=== PATIENT | female | born 1975 | race Caucasian/White ===

== ENCOUNTER 2017-02-02 17:39 | Emergency (ER) | payer MEDICAID ==
[~2017-02-02] VITALS: Ht 165.1 cm; Wt 117.9 kg
[2017-02-02 17:58] VITALS: BP 140/69
== END 2017-02-02 20:59 | disposition home or self-care (01) ==
LOC: ER 17:39
DX: S61.211A Laceration without foreign body of left index finger without damage to nail, initial encounter (principal); E07.9 Disorder of thyroid, unspecified; M79.7 Fibromyalgia; Z85.3 Personal history of malignant neoplasm of breast; W25.XXXA Contact with sharp glass, initial encounter; Y93.H2 Activity, gardening and landscaping; Y99.8 Other external cause status; Y92.89 Other specified places as the place of occurrence of the external cause

== ENCOUNTER 2017-12-13 18:23 | Emergency (ER) | payer MEDICAID ==
[~2017-12-13] VITALS: Ht 165.1 cm; Wt 119.7 kg
[2017-12-13 19:16] LABS: Basophils # (auto) 0 uL; Basophils % (auto) 0.5 % (0.0-2.0); Eosinophils # (auto) 0.2 uL; Eosinophils % (auto) 1.9 % (0.0-7.0); Hematocrit 40.2 % (36.0-46.0); Hemoglobin 13.2 g/dL (12.2-16.2); Lymphocytes # (auto) 1.7 uL; Lymphocytes % (auto) 17.5 % (10.0-50.0); Mean Corpuscular Hemoglobin 29.4 pg (28.0-32.0); Mean Corpuscular Hgb Conc. 32.8 g/dL (32.0-36.0); Mean Corpuscular Volume 89.7 fL (80.0-100.0); Monocytes # (auto) 0.6 uL; Monocytes % (auto) 5.9 % (0.0-12.0); Neutrophils # (auto) 7.1 uL; Neutrophils % (auto) 74.2 % (37.0-80.0); Nucleated Red Blood Cells % 0.1 %; Platelet Count (auto) 307 10^3/uL (140-450); Red Blood Cells 4.48 10^6/uL (4.0-5.20); Red Cell Distribution Width 14.8 % (11.8-14.3); White Blood Cell 9.5 10^3/uL (4.4-10.8)
[2017-12-13 19:30] LABS: Albumin 3.5 g/dL (3.4-5.0); BUN/Creatinine Ratio 13.4
[2017-12-13 19:33] LABS: Bilirubin, Total 0.3 mg/dL (0.2-1.0)
[2017-12-13 19:50] LABS: Urine Bacteria FEW /hpf (None Seen); Urine Blood TRACE /uL (Negative); Urine Specific Gravity 1.017 (1.001-1.035); Urine WBC 3 /hpf (0 - 5)
[2017-12-13 23:52] VITALS: BP 105/58
[2017-12-14] MEDS ORDERED: ONDANSETRON HCL 4 MG/2 ML VIAL IV ONE (00:15)
[2017-12-14] MEDS ORDERED: MORPHINE SULFATE 4 MG/ML SYR/VIAL IV ONE (00:15)
[2017-12-14] MEDS ORDERED: MORPHINE SULFATE 4 MG/ML SYR/VIAL ONE (00:17)
[2017-12-14] MEDS ORDERED: ONDANSETRON HCL 4 MG/2 ML VIAL ONE (00:18)
== END 2017-12-14 01:54 | disposition home or self-care (01) ==
LOC: ER 18:23
DX: K80.20 Calculus of gallbladder without cholecystitis without obstruction (principal); M19.90 Unspecified osteoarthritis, unspecified site; E07.9 Disorder of thyroid, unspecified; Z98.51 Tubal ligation status
CPT/HCPCS: 36415; 74176; 80053; 81001; 81025; 82150; 83690; 84702; 85025; 96374; 96375; 99285; J2270; J2405

== ENCOUNTER 2019-12-22 19:42 | Emergency (ER) | payer MEDICAID ==
[~2019-12-22] VITALS: Ht 165.1 cm; Wt 117.9 kg
[2019-12-22 22:33] VITALS: BP 138/63
[2019-12-22] MEDS ORDERED: HYDROcodone-ACET 10/325MG TAB PO ONE (23:00)
== END 2019-12-23 00:20 | disposition home or self-care (01) ==
LOC: ER 19:42
DX: M25.562 Pain in left knee (principal); Z98.51 Tubal ligation status
CPT/HCPCS: 73562; 93971

== ENCOUNTER 2022-07-21 08:54 | Emergency (ER) | payer MEDICAID ==
[~2022-07-21] VITALS: Ht 165.1 cm; Wt 118.0 kg
[2022-07-21 09:28] LABS: Urine WBC None Seen /hpf (0 - 5)
[2022-07-21 09:47] LABS: Urine Bacteria NONE SEEN /hpf (None Seen); Urine Blood TRACE /uL (Negative)
[2022-07-21 09:59] LABS: Alcohol, Urine < 3.0 mg/dL (0-10); Amphetamine Screen, Urine NEGATIVE (NEGATIVE); Barbiturate Scree,Urine NEGATIVE (NEGATIVE); Benzodiazephine Screen, Urine NEGATIVE (NEGATIVE); Cannabinoid Screen, Urine NEGATIVE (NEGATIVE); Cocaine Screen, Urine NEGATIVE (NEGATIVE); Opiate Scree,Urine NEGATIVE (NEGATIVE); Phencyclidine Screen, Urine NEGATIVE (NEGATIVE)
[2022-07-21 10:18] LABS: Basophils # (auto) 0 10 ^3/uL (0-0.2); Basophils % (auto) 0.6 % (0.0-2.0); Eosinophils # (auto) 0.1 10 ^3/uL (0-0.8); Eosinophils % (auto) 0.9 % (0.0-7.0); Hematocrit 42.2 % (36.0-46.0); Hemoglobin 13.9 g/dL (12.2-16.2); Lymphocytes # (auto) 0.9 10 ^3/uL (0.4-5.4); Lymphocytes % (auto) 11.6 % (10.0-50.0); Mean Corpuscular Hemoglobin 29.7 pg (28.0-32.0); Mean Corpuscular Volume 90.1 fL (80.0-100.0); Monocytes # (auto) 0.4 10 ^3/uL (0-1.3); Monocytes % (auto) 5.7 % (0.0-12.0); Neutrophils % (auto) 81.2 % (37.0-80.0); Red Blood Cells 4.68 10^6/uL (4.0-5.20); Red Cell Distribution Width 13.8 % (11.8-14.3); White Blood Cell 7.4 10^3/uL (4.4-10.8)
[2022-07-21 10:37] LABS: Albumin 3.8 g/dL (3.4-5.0); Calcium 9.1 mg/dL (8.5-10.1); Potassium 4.8 mmol/L (3.5-5.1)
[2022-07-21 10:43] LABS: BUN/Creatinine Ratio 15.6; Bilirubin, Total 0.6 mg/dL (0.2-1.0); Total Protein 7.7 g/dL (6.4-8.2)
[2022-07-21] MEDS ORDERED: ONDA-144 PO (13:01)
[2022-07-21 13:35] VITALS: BP 151/81
== END 2022-07-21 13:37 | disposition home or self-care (01) ==
LOC: ER 08:54
DX: N83.201 Unspecified ovarian cyst, right side (principal); E03.9 Hypothyroidism, unspecified; Z90.49 Acquired absence of other specified parts of digestive tract
CPT/HCPCS: 36415; 74176; 80053; 80307; 81001; 82150; 83690; 85025

== ENCOUNTER 2022-11-13 18:48 | Emergency (ER) | payer MEDICAID, OTHER ==
[~2022-11-13] VITALS: Ht 165.1 cm; Wt 120.5 kg
[~2022-11-13 18:48] MED LIST: ONDA-144 PO
[2022-11-13] MEDS ORDERED: ACETAMINOPHEN 325 MG TAB PO ONE (21:00)
[2022-11-13 21:40] VITALS: BP 127/79
== END 2022-11-13 21:47 | disposition home or self-care (01) ==
LOC: ER 18:48
DX: S00.90XA Unspecified superficial injury of unspecified part of head, initial encounter (principal); Z98.890 Other specified postprocedural states; V89.2XXA Person injured in unspecified motor-vehicle accident, traffic, initial encounter; Y93.89 Activity, other specified; Y92.89 Other specified places as the place of occurrence of the external cause; Y99.8 Other external cause status
CPT/HCPCS: 70450

== ENCOUNTER → 2023-03-14 | Day surgery (SDC) | payer MEDICAID ==
[2023-03-12 10:56] LABS: Basophils # (auto) 0 10 ^3/uL (0-0.2); Basophils % (auto) 0.7 % (0.0-2.0); Eosinophils # (auto) 0.1 10 ^3/uL (0-0.8); Eosinophils % (auto) 1.3 % (0.0-7.0); Hematocrit 41.4 % (36.0-46.0); Hemoglobin 13.7 g/dL (12.2-16.2); Lymphocytes # (auto) 1.3 10 ^3/uL (0.4-5.4); Lymphocytes % (auto) 20.8 % (10.0-50.0); Mean Corpuscular Hemoglobin 29.7 pg (28.0-32.0); Mean Corpuscular Hgb Conc. 33.1 g/dL (32.0-36.0); Mean Corpuscular Volume 89.8 fL (80.0-100.0); Monocytes # (auto) 0.5 10 ^3/uL (0-1.3); Monocytes % (auto) 8.7 % (0.0-12.0); Neutrophils # (auto) 4.2 10 ^3/uL (1.6-8.6); Neutrophils % (auto) 68.5 % (37.0-80.0); Nucleated Red Blood Cells % 0.2 %; Red Blood Cells 4.62 10^6/uL (4.0-5.20); White Blood Cell 6.1 10^3/uL (4.4-10.8)
[2023-03-12 11:23] LABS: INR 0.94 (0.9-1.15); Partial Thromboplastin Time 29.5 sec (24.6-33.4)
[2023-03-12 11:28] LABS: Albumin 3.9 g/dL (3.4-5.0); Calcium 9.1 mg/dL (8.5-10.1)
[2023-03-12 11:31] LABS: BUN/Creatinine Ratio 12.2 (10.0-20.0); Bilirubin, Total 0.4 mg/dL (0.2-1.0); Total Protein 7.8 g/dL (6.4-8.2)
[~2023-03-14] MED LIST changes: +FLUMAZENIL 0.1 MG/ML INJ 10ML MDV IV ONE; +LIDOCAINE VISCOUS 2% 15ML UD ONE; +NALOXONE HCL 0.4 MG/ML VIAL ONE; -ONDA-144 PO; +SODIUM CHLORIDE LOCK 10 ML ONE
[2023-03-14] MEDS: MIDAZOLAM HCL 5 MG/ML-1ML VIAL ONE ×3 (13:55→14:03)
[2023-03-14] MEDS: fentaNYL CITRATE 100 MCG/2 ML VL ONE ×3 (13:57→14:03)
[2023-03-14] MEDS: diphenhdrAMINE HCL 50 MG/1 ML VL ONE ×2 (13:58→14:00)
[2023-03-14 14:41] VITALS: BP 141/63
== END | disposition home or self-care (01) ==
LOC: GI 12:21
PROVIDERS: ATTEND Internal Medicine Gastroenterology
DX: K21.9 Gastro-esophageal reflux disease without esophagitis (principal); K29.90 Gastroduodenitis, unspecified, without bleeding; K44.9 Diaphragmatic hernia without obstruction or gangrene; E03.9 Hypothyroidism, unspecified; Z85.3 Personal history of malignant neoplasm of breast; Z98.890 Other specified postprocedural states
CPT/HCPCS: 36415; 43239; 80053; 84702; 85025; 85610; 85730; 88305; 88342; J1200; J2250; J3010; J7030; 99152

== ENCOUNTER 2024-03-26 11:03 | Emergency (ER) | payer MEDICAID ==
[~2024-03-26] VITALS: Ht 165.1 cm; Wt 105.6 kg
[2024-03-26 12:09] VITALS: BP 129/74; PULSE 79; RESP 20; TEMP 98; O2SAT 100
[2024-03-26] MEDS: KETOROLAC TROMETH 60MG/2ML VIAL IM ONE (12:25)
[2024-03-26] MEDS ORDERED: TRAM-626 PO (12:28)
== END 2024-03-26 12:38 | disposition home or self-care (01) ==
LOC: ER 11:03
DX: M23.8X1 Other internal derangements of right knee (principal); E66.01 Morbid (severe) obesity due to excess calories; Z68.38 Body mass index [BMI] 38.0-38.9, adult; Z85.9 Personal history of malignant neoplasm, unspecified; Z79.899 Other long term (current) drug therapy
CPT/HCPCS: 73562; 96372; 99283; J1885

== ENCOUNTER 2024-11-15 14:57 | Inpatient (IN) | payer MEDICAID ==
[~2024-11-15] VITALS: Ht 167.6 cm; Wt 120.5 kg
[~2024-11-15 14:57] MED LIST changes: -FLUMAZENIL 0.1 MG/ML INJ 10ML MDV IV ONE; -LIDOCAINE VISCOUS 2% 15ML UD ONE; -NALOXONE HCL 0.4 MG/ML VIAL ONE; -SODIUM CHLORIDE LOCK 10 ML ONE; +TRAM-626 PO
[2024-11-15 15:57] LABS: Anion Gap 6 (5-15); Carbon Dioxide 27 mmol/L (20-31); Potassium 4.3 mmol/L (3.5-5.1); Sodium 140 mmol/L (136-145)
[2024-11-15 15:58] LABS: Calcium 10.1 mg/dL (8.7-10.4)
[2024-11-15 16:03] LABS: BUN/Creatinine Ratio 14.3 (10.0-20.0); Blood Urea Nitrogen 11 mg/dL (9-23); Glucose 77 mg/dL (74-106); Lipase 46 U/L (12-53)
[2024-11-15 16:04] LABS: Basophils # (auto) 0 10 ^3/uL (0-0.2); Basophils % (auto) 0.6 % (0.0-2.0); Eosinophils # (auto) 0.1 10 ^3/uL (0-0.8); Hematocrit 40.8 % (36.0-46.0); Hemoglobin 13.7 g/dL (12.2-16.2); Lymphocytes # (auto) 1.1 10 ^3/uL (0.4-5.4); Lymphocytes % (auto) 22.8 % (10.0-50.0); Mean Corpuscular Hemoglobin 30.7 pg (28.0-32.0); Mean Corpuscular Hgb Conc. 33.7 g/dL (32.0-36.0); Mean Corpuscular Volume 91.2 fL (80.0-100.0); Monocytes # (auto) 0.5 10 ^3/uL (0-1.3); Monocytes % (auto) 11.4 % (0.0-12.0); Neutrophils % (auto) 63.2 % (37.0-80.0); Nucleated Red Blood Cells % 0.1 %; Platelet Count (auto) 169 10^3/uL (140-450); Red Blood Cells 4.47 10^6/uL (4.0-5.20); White Blood Cell 4.8 10^3/uL (4.4-10.8)
[2024-11-15 16:23] LABS: Urine Bacteria FEW /hpf (None Seen); Urine Blood TRACE /uL (Negative); Urine Clarity Clear (Clear); Urine Color Light-Yellow (Yellow); Urine Protein, UAD Negative (Negative); Urine Squamous Epithelial Cell FEW /hpf (<5); Urine Urobilinogen Normal (Negative); Urine WBC <1 /hpf (0 - 5); Urine pH 6.5 (5.0-9.0)
[2024-11-15 16:27] LABS: Chloride 107 mmol/L (98-107)
[2024-11-15] MEDS: PANTOPRAZOLE 40 MG/10 ML VIAL INJ IV ONE (17:00)
[2024-11-15] MEDS: MORPHINE SULFATE 4 MG/ML SYR/VIAL IV ONE (17:00)
[2024-11-15] MEDS: ONDANSETRON HCL 4 MG/2 ML VIAL IV ONE ×2 (17:00→23:15)
--- NOTE | 2024-11-15 17:46 | ED.PDOC ---
GI ASSESSMENT HPI Comments 49Y F with PMHx breast CA s/p lumpectomy, autoimmune disease, and thyroid disease presents to ED for chief complaint right sided abd pain x3 days with n/v/d. Pt also states she is experiencing a metallic taste in her mouth. Pt describes abd pain as pressure and burning. The abd pain worsens with eating food. Current pain level 8/10. Chief Complaint: Abdominal Pain Time Seen by MD: 17:35 Primary Care Provider: DR HOLLEY Reviewed Notes: Nurses Notes, Medications, Allergies Allergies: Coded Allergies: NO KNOWN ALLERGIES (Unverified , 02/02/17) Home Meds Active Scripts Tramadol HCl (Tramadol HCl) 50 Mg Tab, 50 MG PO TID, #20 TAB Prov:NANI SALAS 03/26/24 Information Source: Patient Mode of Arrival: Ambulatory Timing: Days Duration: Intermittent Quality: Burning, Other (pressure) Vomitus: Watery Stool: Watery Severity: Mild Recent: None Recent Hx of: None Pain Location: RUQ, RLQ Modifying Factors: Nothing Associated sign and symptoms: Nausea, Vomiting, Diarrhea, Abdominal Pain Past Medical History PAST MEDICAL HISTORY: Cancer, Thyroid Surgical History: BTL, Cholecystectomy Surgical History (Other): lt breast lumpectomy SOCIAL MEDIA MARKETER History: No Pertinent SOCIAL MEDIA MARKETER History Family History Family History: Reviewed,noncontributory to illness Social History Smoker: Non-Smoker Alcohol: Denies ETOH Use Drugs: Denies Drug Use Lives In: Home Constitutional: denies: chills, diaphoresis, fatigue, fever, malaise, sweats, weakness, others EENTM: denies: blurred vision, double vision, ear bleeding, ear discharge, ear drainage, ear pain, ear ringing, eye pain, eye redness, hearing loss, mouth pain, mouth swelling, nasal discharge, nose bleeding, nose congestion, nose pain, photophobia, tearing, throat pain, throat swelling, voice changes, others Respiratory: denies: cough, hemoptysis, orthopnea, SOB at rest, shortness of breath, SOB with excertion, stridor, wheezing, others Cardiovascular: denies: chest pain, dizzy spells, diaphoresis, Dyspnea on exertion, edema, irregular heart beat, left arm pain, lightheadedness, palpitati ons, PND, syncope, others Gastrointestinal: reports: abdominal pain, diarrhea, nausea, vomiting; denies: abdomen distended, blood streaked bowels, constipated, dysphagia, difficulty swallowing, hematemesis, melena, poor appetite, poor fluid intake, rectal bleeding, rectal pain, others Genitourinary: denies: abnormal vagina bleeding, burning, dyspareunia, dysuria, flank pain, frequency, hematuria, incontinence, pain, , vagina discharge, urgency, others Neurological: denies: dizziness, fainting, headache, left sided numbness, left sided weakness, numbness, paresthesia, pre-existing deficit, right sided nu mbness, right sided weakness, seizure, speech problems, tingling, tremors, weakness, others Musculoskeletal: reports: joint pain; denies: back pain, gout, joint swelling, muscle pain, muscle stiffness, neck pain, others Integumetry: denies: bruises, change in color, change in hair/nails, dryness, laceration, lesions, lumps, rash, wounds, others Allergic/Immunocompromised: denies: Difficulty Healing, Frequent Infections, H charlie, Itching, others Hematologic/Lymphatic: denies: anemia, blood clots, easy bleeding, easy bruising, swollen glands, others Endocrine: denies: excessive hunger, excessive sweating, excessive thirst, excessive urination, flushing, intolerance to cold, intolerance to heat, unexplained weight gain, unexplained weight loss, others Psychiatric: denies: anxiety, bipolar disorder, depression, hopeless, panic disorder, schizophrenia, sleepless, suicidal, others All Other Systems: Reviewed and Negative Physical Exam General Appearance: Mild Distress, Normal, Obese HEENT: Other (Unremarkable) Neck: Full Range of Motion, Normal Inspection Respiratory: Lungs Clear, No Accessory Muscle Use, No Respiratory Distress, Normal Breath Sounds Cardiovascular: No Edema, No JVD, Regular Rate/Rhythm Breast Exam: Deferred Gastrointestinal: Soft, Tenderness (Epigastric, Right mid abdominal and right lower quadrant tenderness to palpation. Nontender to percussion. No rebound or guarding.) Genitalia: Deferred Pelvic: Deferred Rectal: Deferred Extremities: Normal inspection, Normal range of motion, Non-tender, No pedal edema Musculoskeletal : Apperance: Normal Neurologic: Alert (Oriented x4), Normal Affect, Normal Mood, Other (Ambulatory without difficulty. No gross focal deficit.) Cerebellar Function: NOT DONE Reflexes: NOT DONE Skin: Dry, Normal Color, Warm Lymphatic: NOT DONE Was a procedure done? Was a procedure done?: No GI differential Dx Differential Diagnosis: Appendicitis, Diverticular disease, Esophagitis, Gastritis/PUD, Gastroenteritis, Inflammatory BD, Ischemic Bowel, UTI, Dehydration, Diabetes/ DKA, Electrolyte Imbalance, Food Poisoning, , Bacterial, Parasitic, Viral, Hypovolemia, Renal Failure, Stress Ulcer, Kidney Stone X-Ray, Labs, Meds, VS Vital Signs Date Time Temp Pulse Resp B/P (MAP) Pulse Ox O2 Delivery O2 Flow Rate FiO2 11/15/24 18:55 88 16 163/101 (121) 98 11/15/24 17:00 88 16 163/101 11/15/24 16:11 78 18 141/81 (101) 100 11/15/24 15:20 97.6 78 18 114/66 (82) 100 Lab Test 11/15/24 15:37 11/15/24 15:16 Range/Units White Blood Count 4.8 4.4-10.8 10^3/uL Red Blood Count 4.47 4.0-5.20 10^6/uL Hemoglobin 13.7 12.2-16.2 g/dL Hematocrit 40.8 36.0-46.0 % Mean Corpuscular Volume 91.2 80.0-100.0 fL Mean Corpuscular Hemoglobin 30.7 28.0-32.0 pg Mean Corpuscular Hemoglobin Concent 33.7 32.0-36.0 g/dL Red Cell Distribution Width 14.0 11.8-14.3 % Platelet Count 169 140-450 10^3/uL Mean Platelet Volume 8.6 6.9-10.8 fL Neutrophils (%) (Auto) 63.2 37.0-80.0 % Lymphocytes (%) (Auto) 22.8 10.0-50.0 % Monocytes (%) (Auto) 11.4 0.0-12.0 % Eosinophils (%) (Auto) 2.0 0.0-7.0 % Basophils (%) (Auto) 0.6 0.0-2.0 % Neutrophils # (Auto) 3.0 1.6-8.6 10 ^3/uL Lymphocytes # (Auto) 1.1 0.4-5.4 10 ^3/uL Monocytes # (Auto) 0.5 0-1.3 10 ^3/uL Eosinophils # (Auto) 0.1 0-0.8 10 ^3/uL Basophils # (Auto) 0 0-0.2 10 ^3/uL Nucleated Red Blood Cells 0.1 % Sodium Level 140 136-145 mmol/L Potassium Level 4.3 3.5-5.1 mmol/L Chloride Level 107 98-107 mmol/L Carbon Dioxide Level 27 20-31 mmol/L Anion Gap 6 5-15 Blood Urea Nitrogen 11 9-23 mg/dL Creatinine 0.77 0.550-1.02 mg/dL Glomerular Filtration Rate Calc 95 >90 mL/min BUN/Creatinine Ratio 14.3 10.0-20.0 Serum Glucose 77 74-106 mg/dL Calcium Level 10.1 8.7-10.4 mg/dL Lipase 46 12-53 U/L Beta HCG, Quantitative Pending Urine Color Light-yellow Yellow Urine Clarity Clear Clear Urine pH 6.5 5.0-9.0 Urine Specific [place] 1.020 1.001-1.035 Urine Protein Negative Negative Urine Ketones Negative Negative Urine Blood Trace H Negative /uL Urine Nitrite Negative Negative Urine Bilirubin Negative Negative Urine Urobilinogen Normal Negative mg/dL Urine Leukocyte Esterase Negative Negative /uL Urine RBC 1 0 - 4 /hpf Urine WBC <1 0 - 5 /hpf Urine Squamous Epithelial Cells Few <5 /hpf Urine Bacteria Few H None Seen /hpf Urine Glucose Normal Normal mg/dL Current Medications Medications (Trade) Dose Ordered Sig/Malgorzata Route Start Time Stop Time Status Last Admin Sodium Chloride 1,000 ml @ 1,000 mls/hr Q1H ONCE IV 11/15/24 17:45 11/15/24 18:44 DC 11/15/24 18:53 Ondansetron HCl (Zofran) 4 mg ONCE ONCE IV 11/15/24 17:45 11/15/24 17:46 DC 11/15/24 17:00 Morphine Sulfate 4 mg ONCE ONCE IV 11/15/24 17:45 11/15/24 17:46 DC 11/15/24 17:00 Pantoprazole Sodium (Protonix) 40 mg ONCE ONCE IV 11/15/24 17:45 11/15/24 17:46 DC 11/15/24 17:00 ORDERING PHYSICIAN: CONSTANCE MENDOZA MD PROCEDURE(s): ABPL - CT AB PEL WO CON-NO ORAL OR IV REASON: upper abd pain n/v/d ORDER NUMBER(s): [id number], ACCESSION NUMBER(s): [id number] EXAM: CT Abdomen and Pelvis Without Intravenous Contrast CLINICAL INDICATION: upper abd pain n/v/d TECHNIQUE: Axial computed tomography images of the abdomen and pelvis without intravenous contrast. This CT exam was performed using one or more of the following dose reduction techniques: automated exposure control, adjustment of the mA and/or kV according to patient size, and/or use of iterative reconstruction technique. RADIATION DOSE: CTDlvol= 25 mGy, DLP= 1293.8 mGy-cm COMPARISON: CT ABD PELVIS WO CONTRAST on DOS: 07/21/22 FINDINGS: LUNG BASES: Unremarkable. No mass. No consolidation. ABDOMEN: LIVER: 1.3 cm says of the left hepatic lobe. GALLBLADDER AND BILE DUCTS: Gallbladder is surgically absent. No ductal dilation. PANCREAS: Unremarkable. No ductal dilation. SPLEEN: Unremarkable. No splenomegaly. ADRENALS: Unremarkable. No mass. KIDNEYS AND URETERS: Unremarkable. No stones within either kidney. No hydronephrosis. STOMACH AND BOWEL: Colonic diverticulosis without acute diverticulitis. No obstruction. PELVIS: APPENDIX: Appendicolith without surrounding fast straining to suggest acute inflammation. BLADDER: Unremarkable. No stones. REPRODUCTIVE: Unremarkable as visualized. ABDOMEN and PELVIS: INTRAPERITONEAL SPACE: Unremarkable. No free air. No significant fluid collection. BONES/JOINTS: No acute fracture. No dislocation. SOFT TISSUES: Umbilical hernia containing fat. VASCULATURE: Unremarkable. No abdominal aortic aneurysm. LYMPH NODES: Unremarkable. No enlarged lymph nodes. OTHER FINDINGS: . . IMPRESSION: 1. Umbilical hernia containing fat. 2. No obstructive uropathy. 3. Colonic diverticulosis without acute diverticulitis. HS:Y X-Ray, Labs, Meds, VS Comment 49Y F with PMHx breast CA s/p lumpectomy, autoimmune disease, and thyroid disease presents to ED for chief complaint of epigastric and right sided abd pain x3 days with n/v/d. Vitals remarkable for BP 148/81 Exam remarkable for epigastric, right mid abdominal and right lower quadrant tenderness to palpation CT abdomen and pelvis: IMPRESSION: 1. Umbilical hernia containing fat. 2. No obstructive uropathy. 3. Colonic diverticulosis without acute diverticulitis. CBC, metabolic panel, lipase and UA unremarkable for any abnormality of acute significance Patient treated with the following in the ED: 1 L 0.9 normal saline IV bolus, morphine 4 mg IV, Zofran 4 mg IV, Protonix 40 mg IV On re-evaluation, patient states pain was still present. Abdominal exam still revealed mild right lower quadrant tenderness to palpation. Fentanyl 50 mcg IV was ordered. Plan is to admit the patient for pain control and GI evaluation. Time of 1ST Reevaluation: 18:05 Reevaluation 1ST: Unchanged Patient Education/Counseling: Diagnosis, Treatment Family Education/Counseling: No Family Present Departure 1 Departure Time of Disposition: 19:52 Impression: Primary Impression: Intractable abdominal pain Disposition: ADMITTED INPATIENT Admit to: Med Surg Condition: Fair Critical Care Note Critical Care Time?: No Stability Stability form required: No Heart Score Heart Score: Heart Score Response (Comments) Value History N/A 0 EKG N/A 0 Age N/A 0 Risk Factors N/A 0 Troponin N/A 0 Total 0 I personally scribed for CONSTANCE MENDOZA MD [facility] on 11/15/24 at 17:46. Electronically submitted by Radha Montes ([employer]). I personally scribed for CONSTANCE MENDOZA MD ([email or web address]) on 11/15/24 at 18:22. Electronically submitted by Radha Montes ([employer]). CONSTANCE MENDOZA MD Nov 15, 2024 17:46
--- NOTE | 2024-11-15 18:00 | DVH ---
EXAM: CT Abdomen and Pelvis Without Intravenous Contrast CLINICAL INDICATION: upper abd pain n/v/d TECHNIQUE: Axial computed tomography images of the abdomen and pelvis without intravenous contrast. This CT exam was performed using one or more of the following dose reduction techniques: automated exposure control, adjustment of the mA and/or kV according to patient size, and/or use of iterative r econstruction technique. RADIATION DOSE: CTDlvol= 25 mGy, DLP= 1293.8 mGy-cm COMPARISON: CT ABD PELVIS WO CONTRAST on DOS: 07/21/22 FINDINGS: LUNG BASES: Unremarkable. No mass. No consolidation. ABDOMEN: LIVER: 1.3 cm says of the left hepatic lobe. GALLBLADDER AND BILE DUCTS: Gallbladder is surgically absent. No ductal dilation. PANCREAS: Unremarkable. No ductal dilation. SPLEEN: Unremarkable. No splenomegaly. ADRENALS: Unremarkable. No mass. KIDNEYS AND URETERS: Unremarkable. No stones within either kidney. No hydronephrosis. STOMACH AND BOWEL: Colonic diverticulosis without acute diverticulitis. No obstruction. PELVIS: APPENDIX: Appendicolith without surrounding fast straining to suggest acute inflammation. BLADDER: Unremarkable. No stones. REPRODUCTIVE: Unremarkable as visualized. ABDOMEN and PELVIS: INTRAPERITONEAL SPACE: Unremarkable. No free air. No significant fluid collection. BONES/JOINTS: No acute fracture. No dislocation. SOFT TISSUES: Umbilical hernia containing fat. VASCULATURE: Unremarkable. No abdominal aortic aneurysm. LYMPH NODES: Unremarkable. No enlarged lymph nodes. OTHER FINDINGS: . . IMPRESSION: 1. Umbilical hernia containing fat. 2. No obstructive uropathy. 3. Colonic diverticulosis without acute diverticulitis. HS:Y
[2024-11-15] MEDS: SODIUM CHLORIDE 0.9% 1,000 ML IV ONE (18:53)
[2024-11-15] MEDS: fentaNYL CITRATE 100 MCG/2 ML VL IV ONE (20:21)
[2024-11-15] MEDS ORDERED: NITROGLYCERIN 0.4 MG SL TAB SL PRN (23:15)
[2024-11-15 23:31] LABS: Alanine Aminotransferase 12 U/L (7-40); Albumin 4.5 g/dL (3.2-4.8); Alkaline Phosphatase 60 U/L (46-116); Aspartate Aminotransferase 20 U/L (13-40); Total Protein 7.8 g/dL (5.7-8.2)
[2024-11-15 23:38] LABS: Bilirubin, Direct < 0.1 mg/dL (<0.3); Bilirubin, Total 0.3 mg/dL (0.2-1.0)
[2024-11-16] MEDS: HYDROcodone-ACET 5/325MG TAB PO ONE (00:04)
[2024-11-16] MEDS: MORPHINE SULFATE INJ 2 MG/ml SYRG IM ONE (02:46)
[2024-11-16] MEDS: MORPHINE SULFATE INJ 2 MG/ml SYRG IV ONE (03:03)
--- NOTE | 2024-11-16 03:14 | DVHHPRES ---
History of Present Illness Resident Creating Document: JOHN PAUL HASSAN RESDIENT History of Present Illness This is a 49-year-old female with past medical history of breast cancer status post lumpectomy (in remission), Sjogren disease, Dada's disease, CKD, and GERD came to the hospital because of abdominal pain. Per patient, the pain started 3 days back, located in epigastric area, radiated to right upper quadrant, 8/10 in intensity, burning in nature which was increasing with taking food. Pain was associated with nausea, vomiting (2 episodes on 1st day), and di arrhea. The patient is diagnosed case of Sjogren disease and Dada disease, patient was recommended medical therapy for Dada's disease open bracket hypothyroidism), the with the patient is not taking any medicine. PMHx: breast cancer status post lumpectomy and chemo/radiotherapy (in remission), Sjogren disease, Dada's disease, Pneumonorrhagia and GERD PSHx: Cholecystectomy and tubal ligation Family history: Mother has hypertension, and lung cancer father Social history: Denies smoking, drink occasionally and denies any other drug use Home medication: Tramadol PCP: Dr. Encarnacion Review of Systems Review of Systems General: patient denies fever, fatigue, weaknes, sweating, any recent changes in appetite and weight HEENT: No headaches, visiual changes, hearing loss, tinnitus, nasal congestion and discharge, and sore throat. Cardiovascular: Reports mild chest pain Respiratory: No cough, and wheezing. Gastrointestinal: Reports abdominal pain, nausea, vomiting and diarrhea Genitourinary: No dysuria, hematuria, discharge, frequency, urgency, nocturia, incontinence, and urinary retention. Endocrine: No heat or cold intolerance, polydipsia, polyuria, and polyphagia. Neurological: No dizziness, extremity weakness and numbness, tremors, gait disturbance, seizures, and memory impairment. Psychiatric: Denies depression, anxiety,or insomnia. Musculoskeletal: Denies neck pain, stiffness and swelling, back pain, muscle weakness, joint pain, stiffness, swelling, or limited range of motion. Skin: No rashes, itching, skin lesion, changes in hair, nail, skin texture and breast. Hematologic/Lymphatic: Denies easy bruising, bleeding tendencies, or lymph node enlargement. Allergies: Coded Allergies: NO KNOWN ALLERGIES (Unverified , 02/02/17) Medications Current Medications Medications Dose Ordered Sig/Malgorzata Route Start Time Stop Time Status Last Admin Dose Admin Nitroglycerin 0.4 mg Q5MINP PRN SL 11/15/24 23:15 Acetaminophen/ Hydrocodone Bitart 1 tab Q6HPRN PRN PO 11/15/24 23:15 Ondansetron HCl 4 mg Q6HPRN PRN IV 11/15/24 23:15 Pantoprazole Sodium 40 mg DAILY IV 11/16/24 10:00 Exam Vital Signs Vital Signs Date Time Temp Pulse Resp B/P (MAP) Pulse Ox O2 Delivery O2 Flow Rate FiO2 11/15/24 20:21 178/107 11/15/24 18:55 88 16 98 11/15/24 15:20 97.6 Exam General Appearance: Alert, Oriented X3, Cooperative, No acute distress HEENT: Atraumatic, PERRLA, EOMI, Mucous membrane moist/pink Respiratory: Clear to auscultation, Normal air movement Cardiovascular: Regular rate, Normal S1, Normal S2, No murmurs, no chest wall tenderness Abdominal: Mild epigastric tenderness Extremities: No clubbing, No cyanosis, No edema, Normal pulses, No tenderness/swelling Skin: No rashes, No breakdown, No significant lesion Neuro: Normal gait, Normal speech, Strength at 5/5 X4 ext, Normal tone, Sensation intact, Cranial nerves 3-12 NL, Reflexes 2+ Psych/Mental Status: Mental status NL, Mood NL Labs/Xrays Labs Test 11/15/24 15:37 11/15/24 15:16 Range/Units White Blood Count 4.8 4.4-10.8 10^3/uL Red Blood Count 4.47 4.0-5.20 10^6/uL Hemoglobin 13.7 12.2-16.2 g/dL Hematocrit 40.8 36.0-46.0 % Mean Corpuscular Volume 91.2 80.0-100.0 fL Mean Corpuscular Hemoglobin 30.7 28.0-32.0 pg Mean Corpuscular Hemoglobin Concent 33.7 32.0-36.0 g/dL Red Cell Distribution Width 14.0 11.8-14.3 % Platelet Count 169 140-450 10^3/uL Mean Platelet Volume 8.6 6.9-10.8 fL Neutrophils (%) (Auto) 63.2 37.0-80.0 % Lymphocytes (%) (Auto) 22.8 10.0-50.0 % Monocytes (%) (Auto) 11.4 0.0-12.0 % Eosinophils (%) (Auto) 2.0 0.0-7.0 % Basophils (%) (Auto) 0.6 0.0-2.0 % Neutrophils # (Auto) 3.0 1.6-8.6 10 ^3/uL Lymphocytes # (Auto) 1.1 0.4-5.4 10 ^3/uL Monocytes # (Auto) 0.5 0-1.3 10 ^3/uL Eosinophils # (Auto) 0.1 0-0.8 10 ^3/uL Basophils # (Auto) 0 0-0.2 10 ^3/uL Nucleated Red Blood Cells 0.1 % Sodium Level 140 136-145 mmol/L Potassium Level 4.3 3.5-5.1 mmol/L Chloride Level 107 98-107 mmol/L Carbon Dioxide Level 27 20-31 mmol/L Anion Gap 6 5-15 Blood Urea Nitrogen 11 9-23 mg/dL Creatinine 0.77 0.550-1.02 mg/dL Glomerular Filtration Rate Calc 95 >90 mL/min BUN/Creatinine Ratio 14.3 10.0-20.0 Serum Glucose 77 74-106 mg/dL Calcium Level 10.1 8.7-10.4 mg/dL Total Bilirubin 0.3 0.2-1.0 mg/dL Direct Bilirubin < 0.1 <0.3 mg/dL Aspartate Amino Transferase (AST) 20 13-40 U/L Alanine Aminotransferase (ALT) 12 7-40 U/L Alkaline Phosphatase 60 46-116 U/L Total Protein 7.8 5.7-8.2 g/dL Albumin 4.5 3.2-4.8 g/dL Lipase 46 12-53 U/L Thyroid Stimulating Hormone (TSH) 6.60 H 0.55-4.78 uIU/mL Beta HCG, Quantitative 0.5 L 1.5-4.2 mIU/mL Urine Color Light-yellow Yellow Urine Clarity Clear Clear Urine pH 6.5 5.0-9.0 Urine Specific [place] 1.020 1.001-1.035 Urine Protein Negative Negative Urine Ketones Negative Negative Urine Blood Trace H Negative /uL Urine Nitrite Negative Negative Urine Bilirubin Negative Negative Urine Urobilinogen Normal Negative mg/dL Urine Leukocyte Esterase Negative Negative /uL Urine RBC 1 0 - 4 /hpf Urine WBC <1 0 - 5 /hpf Urine Squamous Epithelial Cells Few <5 /hpf Urine Bacteria Few H None Seen /hpf Urine Glucose Normal Normal mg/dL Assessment/Plan Assessment/Plan Possible gastroenteritis History of GERD Stool study IV normal saline Zofran Protonix Check C diff History of Sjogren disease History of Dada's disease/hypothyroidism Patient is noncompliant with the medicine TSH is raised at 6.6 Check free T3/T4 Ruled out pancreatitis Lipase is normal, CT scan of abdomen shows no sign of pancreatitis Umbilical hernia CT scan shows umbilical hernia containing fat Follow up with the outpatient basis Diverticulosis without diverticulitis CT scan finding GERD Hiatal hernia EGD from 03/14/2023 shows 1 cm sliding-type hiatal hernia, with mild antral gastritis and minimal duodenitis History of breast cancer, status post lumpectomy and chemo/radiotherapy In remission Follow up on outpatient basis Hypertension Amlodipine Polymonorrhagia Continue home medicine, [facility] b.i.d. DIET: Clear liquid diet DVT PROPHYLAXIS: Patient is ambulatory, no need for the anticoagulant GI PROPHYLAXIS:: Protonix BOWEL REGIMEN: Patient has diarrhea, no indication for laxative CODE STATUS: Goal of care discussed for more than 21 minutes, full code DISPOSITION: Med surge Patient's status discussed with with the patient. Case discussed with Dr. Rubin Plan discussed with: Patient, Other (RN) My Orders Orders - JOHN PAUL HASSAN RESDIENT Procedure Category Date Status Time Admit ADMIT 11/15/24 Transmitted 23:01 Nitroglycerin PHA 11/15/24 In Process Sublingual (Ntrostat 23:15 Stat Ekg For Chest VANDANA 11/15/24 In Process Pain 23:01 Notify Md Of Changes VANDANA 11/15/24 In Process From Base 23:01 Hydrocodone-Acet PHA 11/15/24 In Process 5/325mg Tab ([place] 23:15 Ondansetron Hcl PHA 11/15/24 In Process (Zofran) 23:15 Pantoprazole PHA 11/16/24 In Process (Protonix) 10:00 Clear Liq Diet DIET 11/16/24 Transmitted Breakfast Stool Bacterial VICENTE 11/15/24 Logged Culture 23:01 Stool Wbc LAB 11/15/24 Logged 23:01 Clostridium Difficile VICENTE 11/15/24 Transmitted Toxin 23:01 Drug Screen LAB 11/15/24 Transmitted 23:01 Code Status CODE 11/15/24 Transmitted 23:05 Full Code VANDANA 11/15/24 In Process 23:05 Morphine Sulfate PHA 11/16/24 Logged Injection 02:45 Date of Service: Nov 15, 2024 Billing Provider: MURALI RUBIN MD Common Visit Codes: [id number] INP/OBS CARE (HIGH) JOHN PAUL HASSAN RESDIENT Nov 16, 2024 03:14 MURALI RUBIN MD Nov 16, 2024 09:43
[2024-11-16 07:33] LABS: Alanine Aminotransferase 12 U/L (7-40); Calcium 9.4 mg/dL (8.7-10.4); Carbon Dioxide 21 mmol/L (20-31); Potassium 4.1 mmol/L (3.5-5.1); Sodium 138 mmol/L (136-145); Triglycerides 84 mg/dL (< 150)
[2024-11-16 07:34] LABS: Albumin 4.2 g/dL (3.2-4.8); Anion Gap 10 (5-15); Aspartate Aminotransferase 23 U/L (13-40); BUN/Creatinine Ratio 11.8 (10.0-20.0); Cholesterol 190 mg/dL (< 200)
[2024-11-16 07:35] LABS: Bilirubin, Total 0.5 mg/dL (0.2-1.0); HDL Cholesterol 43 mg/dL (40-59); Total Protein 7.3 g/dL (5.7-8.2)
[2024-11-16 07:36] LABS: Free T3 3.28 pg/mL (2.3-4.2)
[2024-11-16 07:37] LABS: Free T4 (Free Thyroxine) 0.81 ng/dL (0.89-1.76)
[2024-11-16 07:39] LABS: Alkaline Phosphatase 44 U/L (46-116); Basophils # (auto) 0 10 ^3/uL (0-0.2); Basophils % (auto) 0.6 % (0.0-2.0); Blood Urea Nitrogen 8 mg/dL (9-23); Chloride 107 mmol/L (98-107); Eosinophils # (auto) 0.1 10 ^3/uL (0-0.8); Eosinophils % (auto) 2.4 % (0.0-7.0); Glucose 71 mg/dL (74-106); Hemoglobin 13.8 g/dL (12.2-16.2); LDL Cholesterol 145 mg/dL (< 100); Lymphocytes # (auto) 1.2 10 ^3/uL (0.4-5.4); Lymphocytes % (auto) 26.5 % (10.0-50.0); Mean Corpuscular Hgb Conc. 33.5 g/dL (32.0-36.0); Mean Corpuscular Volume 92.5 fL (80.0-100.0); Monocytes # (auto) 0.5 10 ^3/uL (0-1.3); Monocytes % (auto) 11.4 % (0.0-12.0); Neutrophils # (auto) 2.6 10 ^3/uL (1.6-8.6); Neutrophils % (auto) 59.1 % (37.0-80.0); Nucleated Red Blood Cells % 0.2 %; Platelet Count (auto) 133 10^3/uL (140-450); Red Blood Cells 4.43 10^6/uL (4.0-5.20); Red Cell Distribution Width 14.1 % (11.8-14.3); White Blood Cell 4.4 10^3/uL (4.4-10.8)
[2024-11-16 08:23] VITALS: BP 142/76; PULSE 72; RESP 16; TEMP 98.1; O2SAT 98
[2024-11-16 09:00] VITALS: BP 142/72; PULSE 72; RESP 16; TEMP 98.1; O2SAT 98
[2024-11-16] MEDS: PANTOPRAZOLE 40 MG/10 ML VIAL INJ IV SCH (09:59)
[2024-11-16 12:00] VITALS: BP 130/79; PULSE 65; RESP 16; TEMP 97.6; O2SAT 97
[2024-11-16] MEDS ORDERED: AMOXICILLIN TRIHYDRATE 250 MG CAP PO SCH (14:00)
[2024-11-16 17:22] VITALS: BP 123/72; PULSE 72; TEMP 97.5; O2SAT 98
--- NOTE | 2024-11-16 17:32 | DVHCONRES ---
Date Seen: Nov 16, 2024 Resident Creating Document: CAMPBELL DAVILA RESIDENT Referring Physician Reason for Consultation Probably ulcer, history of H pylori History of Present Illness 49-year-old female patient with past medical history of breast cancer status po st lumpectomy (currently on remission), showing disease, Dada's disease, chronic kidney disease, GERD who was brought to the emergency department with a chief complaint of severe abdominal pain. The pain started 3 days ago located in the epigastrium radiating to the right upper quadrant, pain was described as 8/10 intensity and burning in nature which was increasing after eating. Abdominal pain that was associated with nausea , diarrhea and vomiting. Patient denies any other complaint. Patient was evaluated for history of Helicobacter pylori infection and possible ulcer. However, the patient declined undergoing an esophagogastroduodenoscopy at this time. Given that the patient is hemodynamically stable and had an endoscopy performed 1 year ago, which did not reveal significant findings, an EGD is not immediately warranted. The patient was advised to follow up with GI in the outpatient setting for further evaluation and management, including monitoring for any recurrence of symptoms or complications. Past Medical History breast cancer status post lumpectomy and chemo/radiotherapy (in remission), Sjogren disease, Dada's disease, Pneumonorrhagia and GERD Past Surgical History Cholecystectomy and tubal ligation Allergies: Coded Allergies: NO KNOWN ALLERGIES (Unverified , 02/02/17) Home Meds Active Scripts Tramadol HCl (Tramadol HCl) 50 Mg Tab, 50 MG PO TID, #20 TAB Prov:NANI SALAS 03/26/24 Current Medications Current Medications Medications (Trade) Dose Ordered Sig/Malgorzata Route PRN Reason Start Time Stop Time Status Last Admin Nitroglycerin (Ntrostat Sublingual) 0.4 mg Q5MINP PRN SL FOR CHEST PAIN 11/15/24 23:15 Acetaminophen/ Hydrocodone Bitart ([place] 5/325MG Tab) 1 tab Q6HPRN PRN PO MODERATE PAIN (4-6 PAIN SCALE) 11/15/24 23:15 Ondansetron HCl (Zofran) 4 mg Q6HPRN PRN IV NAUSEA / VOMITING 11/15/24 23:15 Pantoprazole Sodium (Protonix) 40 mg DAILY IV 11/16/24 10:00 11/16/24 12:40 DC 11/16/24 09:59 Amoxicillin 1,000 mg Q8HR PO 11/16/24 14:00 Hold Metronidazole (Flagyl Tablet) 500 mg Q8HR PO 11/16/24 14:00 Pantoprazole Sodium (Protonix Tablet) 40 mg BID@0600,1700 PO 11/16/24 17:00 Bismuth Subsalicylate (Pepto Bismol Tablet) 524 mg QID PO 11/16/24 14:00 Review of Systems General: patient denies fever, fatigue, weakness, sweating, any recent changes in appetite and weight Cardiovascular: Patient denies chest pain, shortness of breaths, palpitations Respiratory: No cough, and wheezing. Gastrointestinal: Reports mild abdominal pain, denies nausea, vomiting and diarrhea Genitourinary: No dysuria, hematuria, discharge, frequency, urgency, nocturia, incontinence, and urinary retention. Endocrine: No heat or cold intolerance, polydipsia, polyuria, and polyphagia. Neurological: No dizziness, extremity weakness and numbness, tremors, gait disturbance, seizures, and memory impairment. Psychiatric: Denies depression, anxiety,or insomnia. Musculoskeletal: Denies neck pain, stiffness and swelling, back pain, muscle weakness, joint pain, stiffness, swelling, or limited range of motion. Skin: No rashes, itching, skin lesion, changes in hair, nail, skin texture and breast. Vital Signs Vital Signs Date Time Temp Pulse Resp B/P (MAP) Pulse Ox O2 Delivery O2 Flow Rate FiO2 11/16/24 09:00 98.1 72 16 142/72 (95) 98 98.1 11/16/24 08:23 Room Air* 0 21 Physical Exam General Appearance: Alert, Oriented X3, Cooperative, No acute distress Respiratory: Clear to auscultation, Normal air movement Cardiovascular: Regular rate, Normal S1, Normal S2, No murmurs, no chest wall tenderness Abdominal: Mild epigastric tenderness Extremities: No clubbing, No cyanosis, No edema, Normal pulses, No tenderness/swelling Skin: No rashes, No breakdown, No significant lesion Neuro: Normal gait, Normal speech, Strength at 5/5 X4 ext, Normal tone, Sensation intact, Cranial nerves 3-12 NL, Reflexes 2+ Psych/Mental Status: Mental status NL, Mood NL Labs/Diagnostic Data Labs Test 11/16/24 06:29 11/15/24 15:37 11/15/24 15:16 Range/Units White Blood Count 4.4 4.4-10.8 10^3/uL Red Blood Count 4.43 4.0-5.20 10^6/uL Hemoglobin 13.8 12.2-16.2 g/dL Hematocrit 41.0 36.0-46.0 % Mean Corpuscular Volume 92.5 80.0-100.0 fL Mean Corpuscular Hemoglobin 31.0 28.0-32.0 pg Mean Corpuscular Hemoglobin Concent 33.5 32.0-36.0 g/dL Red Cell Distribution Width 14.1 11.8-14.3 % Platelet Count 133 L 140-450 10^3/uL Mean Platelet Volume 8.4 6.9-10.8 fL Neutrophils (%) (Auto) 59.1 37.0-80.0 % Lymphocytes (%) (Auto) 26.5 10.0-50.0 % Monocytes (%) (Auto) 11.4 0.0-12.0 % Eosinophils (%) (Auto) 2.4 0.0-7.0 % Basophils (%) (Auto) 0.6 0.0-2.0 % Neutrophils # (Auto) 2.6 1.6-8.6 10 ^3/uL Lymphocytes # (Auto) 1.2 0.4-5.4 10 ^3/uL Monocytes # (Auto) 0.5 0-1.3 10 ^3/uL Eosinophils # (Auto) 0.1 0-0.8 10 ^3/uL Basophils # (Auto) 0 0-0.2 10 ^3/uL Nucleated Red Blood Cells 0.2 % Sodium Level 138 136-145 mmol/L Potassium Level 4.1 3.5-5.1 mmol/L Chloride Level 107 98-107 mmol/L Carbon Dioxide Level 21 20-31 mmol/L Anion Gap 10 5-15 Blood Urea Nitrogen 8 L 9-23 mg/dL Creatinine 0.68 0.550-1.02 mg/dL Glomerular Filtration Rate Calc 107 >90 mL/min BUN/Creatinine Ratio 11.8 10.0-20.0 Serum Glucose 71 L 74-106 mg/dL Calcium Level 9.4 8.7-10.4 mg/dL Total Bilirubin 0.5 0.2-1.0 mg/dL Aspartate Amino Transferase (AST) 23 13-40 U/L Alanine Aminotransferase (ALT) 12 7-40 U/L Alkaline Phosphatase 44 L 46-116 U/L Total Protein 7.3 5.7-8.2 g/dL Albumin 4.2 3.2-4.8 g/dL Triglycerides Level 84 < 150 mg/dL Cholesterol Level 190 < 200 mg/dL LDL Cholesterol 145 H < 100 mg/dL HDL Cholesterol 43 40-59 mg/dL Free Thyroxine (T4) Calculated 0.81 L 0.89-1.76 ng/dL Free Triiodothyronine (T3) pg/mL 3.28 2.3-4.2 pg/mL Direct Bilirubin < 0.1 <0.3 mg/dL Lipase 46 12-53 U/L Thyroid Stimulating Hormone (TSH) 6.60 H 0.55-4.78 uIU/mL Beta HCG, Quantitative 0.5 L 1.5-4.2 mIU/mL Urine Color Light-yellow Yellow Urine Clarity Clear Clear Urine pH 6.5 5.0-9.0 Urine Specific [place] 1.020 1.001-1.035 Urine Protein Negative Negative Urine Ketones Negative Negative Urine Blood Trace H Negative /uL Urine Nitrite Negative Negative Urine Bilirubin Negative Negative Urine Urobilinogen Normal Negative mg/dL Urine Leukocyte Esterase Negative Negative /uL Urine RBC 1 0 - 4 /hpf Urine WBC <1 0 - 5 /hpf Urine Squamous Epithelial Cells Few <5 /hpf Urine Bacteria Few H None Seen /hpf Urine Glucose Normal Normal mg/dL Assessment Possible gastroenteritis , rule out gastric ulcers and H. Pylori infection History of GERD History of Sjogren disease History of Dada's disease/hypothyroidism Ruled out pancreatitis Umbilical hernia Diverticulosis without diverticulitis EGD from 03/14/2023 shows 1 cm sliding-type hiatal hernia, with mild antral gastritis and minimal duodenitis Plan/Recommendation Continue pantoprazole 40 mg daily b.i.d. p.o. Follow-up in GI clinic as an outpatient. Avoid NSAIDs , alcohol, spicy, highly acidic and constant diets. Please scheduled follow-up with GI as outpatient with Dr. Min. Thank you so much for the opportunity to consult on your patient. GI team will follow the patient. In case of any question or concern please feel free to reach out. Case an action plan discussed with Dr. Min. Complex care planning needed total 41 minutes of the time discussion Plan discussed with: Patient CAMPBELL DAVILA RESIDENT Nov 16, 2024 17:32
[2024-11-16] MEDS: metroNIDAZOLE 500 MG TAB PO SCH (17:36)
[2024-11-16] MEDS: PANTOPRAZOLE 40 MG TAB PO SCH (17:36)
[2024-11-16] MEDS ORDERED: ELAG1CAP PO (18:04)
[2024-11-16] MEDS: BISMUTH SUBSALICYLATE 262 MG CHEW PO SCH (19:11)
[2024-11-16 20:00] VITALS: PULSE 74; RESP 18; O2SAT 100
[2024-11-16] MEDS: AMOXICILLIN TRIHYDRATE 250 MG CAP PO SCH (20:38)
[2024-11-16] MEDS: ONDANSETRON HCL 4 MG/2 ML VIAL IV PRN (20:39)
--- NOTE | 2024-11-16 20:49 | DVHPNRES ---
Progress Note Date Seen: Nov 16, 2024 Resident Creating Document: DIOR LEMUSPAMELA RESIDENT Medical Necessity Reason Pt with a Central, PICC or Fol: No Subjective Review of Systems Patient is a 49-year-old female with a past medical history as described below came to the ED with a chief complaint of epigastric abdominal pain since the past 3 days. Patient reports about 3 days ago she started with pain in the epigastric area which was described as dull, constant with intermittent worsening on eating food and the pain went up into the chest with a pressure- like sensation and also reflux, ulcer radiating into the right upper quadrant, had associated nausea and 2 episodes of vomiting and few episodes of loose watery stools. Patient reports that she has loose stools all the time but no associated melena, hematochezia but sometimes has mucus in the stool. Patient has a history of diagnosed with H pylori twice in the past for which she took triple regimen medication. Past medical history: Sjogren disease, Dada's, breast cancer status post lumpectomy and chemo/radiotherapy(in remission), GERD, polymenorrhagia Past surgical history: Cholecystectomy and tubal ligation Social history: Denies smoking, drinks occasionally and denies any other drug use Home medications: Oriahnn ([id number]). Patient has been prescribed hydroxychloroquine and levothyroxine but she is currently not taking the medication about from the tramadol 50 mg p.o. t.i.d. for pain Review of systems At the time of examination patient reported mild epigastric abdominal discomfort. Denied nausea, vomiting but has intermittent reflux. Objective vital signs Vital Sign Date Time Temp Pulse Resp B/P (MAP) Pulse Ox O2 Delivery O2 Flow Rate FiO2 11/16/24 17:22 97.5 72 123/72 (89) 98 97.5 11/16/24 12:00 16 11/16/24 08:23 Room Air* 0 21 medications Current Medications Medications Dose Ordered Sig/Malgorzata Route Start Time Stop Time Status Last Admin Dose Admin Nitroglycerin 0.4 mg Q5MINP PRN SL 11/15/24 23:15 Acetaminophen/ Hydrocodone Bitart 1 tab Q6HPRN PRN PO 11/15/24 23:15 Ondansetron HCl 4 mg Q6HPRN PRN IV 11/15/24 23:15 11/16/24 20:39 4 MG Metronidazole 500 mg Q8HR PO 11/16/24 14:00 11/16/24 20:39 500 MG Pantoprazole Sodium 40 mg BID@0600,1700 PO 11/16/24 17:00 11/16/24 17:36 40 MG Bismuth Subsalicylate 524 mg QID PO 11/16/24 14:00 11/16/24 19:11 524 MG Patient Own Medication 1 BID PO 11/16/24 20:00 Amoxicillin 1,000 mg Q12H PO 11/16/24 20:00 11/16/24 20:38 1,000 MG Examination Physical Examination Constitution: Patient was alert and oriented to time, place and person and does not appear to be in any acute distress. Gen - no pallor, no icterus, no cyanosis, no clubbing, no LAD, no edema . Skin - Patients skin is warm and dry. HEENT - normocephalic, atraumatic, dry mucous membranes. Neck - full ROM, no LAD, no JVD. Pulmonary - B/L vesicular breath sounds. no crackles , no wheezing, no stridor. cardiovascular - normal S1,S2 heard. no murmurs heard. GI - soft abdomen with mild tenderness to palpation in the epigastric region. no hepatospleenomegaly. Bowel sounds normoactive Neurological - Bilateral upper extremity strength 5/5, bilateral lower extremity strength 5/5, no facial droop, normal speech, no tremor, no sensory deficiets. laboratory and microbiology Laboratory Tests 11/16/24 06:29 Test 11/16/24 06:29 Range/Units Serum Glucose 71 L 74-106 mg/dL Problem List/Assessment/Plan Problem List/Assessment/Plan Acute abdominal pain likely due to gastritis Dyspepsia ? Acute gastritis d/t ?h.pylori ? Peptic ulcer disease H/O H pylori infection - CT abdomen pelvis shows unremarkable pancreas, gallbladder surgically absent, no fat stranding surrounding appendix Umbilical hernia containing fat, no obstructive uropathy, colonic diverticulosis with acute diverticulitis - EGD from October 2023 shows 1 cm sliding-type hiatal hernia with slightly irregular squamocolumnar junction, mild antral gastritis with pre-pyloric gastric erosions, minimal duodenitis - GI consulted, patient may need an EGD - patient was started on quadruple therapy with the amoxicillin, metronidazole, pantoprazole, bismuth - on full liquid diet Hypothyroidism H/O Dada's disease H/O Sjogren disease - TSH 6.6, free T4 0.81, free T3 3.28 - started on levothyroxine 125 mcg per day Umbilical hernia CT scan shows umbilical hernia containing fat Follow up with the outpatient basis Polymonorrhagia [facility] medicine, [facility] b.i.serge Goals of care discussed with the patient for over 23 minutes. Full code Plan discussed with Dr. Lay Plan discussed with: Patient My Orders My Orders Orders - KINA LEMUS Procedure Category Date Status Time Metronidazole Tablet PHA 11/16/24 In Process (Flagyl Tablet) 14:00 Pantoprazole Tablet PHA 11/16/24 In Process (Protonix Tablet) 17:00 Bismuth Subsalicylate PHA 11/16/24 In Process Tablet (Pepto Bism 14:00 Electrocardigram EKG 11/16/24 Logged 12:43 Amoxicillin Capsule PHA 11/16/24 In Process 20:00 Pharmacy [facility] 11/16/24 In Process Clarification: 18:46 Transfer Orders XFER 11/16/24 Transmitted 18:55 Discontinue Tele [facility] 11/16/24 In Process 18:55 Date of Service: Nov 16, 2024 Billing Provider: DEVYN LAY MD Common Visit Codes: [id number] INP/OBS CARE(HIGH) KINA LEMUS RESIDENT Nov 16, 2024 20:49 DEVYN LAY MD Nov 17, 2024 17:10
[2024-11-16 21:00] VITALS: BP 140/85; PULSE 74; RESP 18; TEMP 97.4; O2SAT 100
[2024-11-16] MEDS: [UNRECOGNIZED DRUG - OTHER] PO SCH (21:06)
[2024-11-16] MEDS: HYDROcodone-ACET 5/325MG TAB PO PRN (21:07)
[2024-11-17 01:00] VITALS: BP 112/60; PULSE 78; RESP 18; TEMP 98.1; O2SAT 96
[2024-11-17 05:00] VITALS: BP 96/54; PULSE 78; RESP 19; TEMP 98.9; O2SAT 97
[2024-11-17] MEDS: LEVOTHYROXINE SODIUM 50 MCG TAB PO SCH (05:39)
[2024-11-17 08:00] VITALS: PULSE 76; RESP 16; O2SAT 99
[2024-11-17 08:28] LABS: Anion Gap 7 (5-15); Basophils # (auto) 0 10 ^3/uL (0-0.2); Basophils % (auto) 0.4 % (0.0-2.0); Carbon Dioxide 25 mmol/L (20-31); Chloride 106 mmol/L (98-107); Eosinophils # (auto) 0.1 10 ^3/uL (0-0.8); Eosinophils % (auto) 2.2 % (0.0-7.0); Hematocrit 39.5 % (36.0-46.0); Hemoglobin 13.5 g/dL (12.2-16.2); Lymphocytes # (auto) 0.7 10 ^3/uL (0.4-5.4); Lymphocytes % (auto) 18.6 % (10.0-50.0); Mean Corpuscular Hemoglobin 31.2 pg (28.0-32.0); Mean Corpuscular Hgb Conc. 34.1 g/dL (32.0-36.0); Mean Corpuscular Volume 91.5 fL (80.0-100.0); Monocytes # (auto) 0.4 10 ^3/uL (0-1.3); Monocytes % (auto) 10.5 % (0.0-12.0); Neutrophils # (auto) 2.7 10 ^3/uL (1.6-8.6); Neutrophils % (auto) 68.3 % (37.0-80.0); Platelet Count (auto) 133 10^3/uL (140-450); Potassium 4.2 mmol/L (3.5-5.1); Red Blood Cells 4.32 10^6/uL (4.0-5.20); Red Cell Distribution Width 13.8 % (11.8-14.3); Sodium 138 mmol/L (136-145)
[2024-11-17 08:30] LABS: Calcium 9.7 mg/dL (8.7-10.4)
[2024-11-17 08:34] LABS: Glucose 81 mg/dL (74-106)
[2024-11-17 08:35] LABS: BUN/Creatinine Ratio 10.3 (10.0-20.0); Blood Urea Nitrogen 7 mg/dL (9-23)
[2024-11-17 09:00] VITALS: BP 104/63; PULSE 71; RESP 16; TEMP 97.8; O2SAT 96
[2024-11-17] MEDS ORDERED: PANT40TA2 PO (10:47)
[2024-11-17] MEDS ORDERED: LEVO-849 PO (10:47)
[2024-11-17] MEDS ORDERED: SUCR1TAB31 OR (10:47)
[2024-11-17 13:03] VITALS: BP 111/71; PULSE 78; RESP 18; TEMP 97.7; O2SAT 96
[2024-11-17 13:21] VITALS: BP 104/63; PULSE 71; RESP 16; TEMP 36.5; O2SAT 96
--- NOTE | 2024-11-17 20:20 | DVHDSRES ---
Discharge Summary Date of Admission Resident Creating Document: KINA ELMUS RESIDENT Nov 15, 2024 at 23:01 Date of Discharge: Nov 17, 2024 Admitting Diagnosis Possible gastroenteritis History of GERD History of Sjogren disease History of Dada's disease/hypothyroidism Ruled out pancreatitis Umbilical hernia Diverticulosis without diverticulitis GERD Hiatal hernia History of breast cancer, status post lumpectomy and chemo/radiotherapy Hypertension Polymenorrhagia Wounds: no wounds Labs/Diagnostic Data: Laboratory Results Test 11/17/24 07:12 11/16/24 06:29 11/15/24 15:37 11/15/24 15:16 White Blood Count 4.0 10^3/uL (4.4-10.8) Red Blood Count 4.32 10^6/uL (4.0-5.20) Hemoglobin 13.5 g/dL (12.2-16.2) Hematocrit 39.5 % (36.0-46.0) Mean Corpuscular Volume 91.5 fL (80.0-100.0) Mean Corpuscular Hemoglobin 31.2 pg (28.0-32.0) Mean Corpuscular Hemoglobin Concent 34.1 g/dL (32.0-36.0) Red Cell Distribution Width 13.8 % (11.8-14.3) Platelet Count 133 10^3/uL (140-450) Mean Platelet Volume 8.6 fL (6.9-10.8) Neutrophils (%) (Auto) 68.3 % (37.0-80.0) Lymphocytes (%) (Auto) 18.6 % (10.0-50.0) Monocytes (%) (Auto) 10.5 % (0.0-12.0) Eosinophils (%) (Auto) 2.2 % (0.0-7.0) Basophils (%) (Auto) 0.4 % (0.0-2.0) Neutrophils # (Auto) 2.7 10 ^3/uL (1.6-8.6) Lymphocytes # (Auto) 0.7 10 ^3/uL (0.4-5.4) Monocytes # (Auto) 0.4 10 ^3/uL (0-1.3) Eosinophils # (Auto) 0.1 10 ^3/uL (0-0.8) Basophils # (Auto) 0 10 ^3/uL (0-0.2) Nucleated Red Blood Cells 0.0 % Sodium Level 138 mmol/L (136-145) Potassium Level 4.2 mmol/L (3.5-5.1) Chloride Level 106 mmol/L (98-107) Carbon Dioxide Level 25 mmol/L (20-31) Anion Gap 7 (5-15) Blood Urea Nitrogen 7 mg/dL (9-23) Creatinine 0.68 mg/dL (0.550-1.02) Glomerular Filtration Rate Calc 107 mL/min (>90) BUN/Creatinine Ratio 10.3 (10.0-20.0) Serum Glucose 81 mg/dL (74-106) Calcium Level 9.7 mg/dL (8.7-10.4) Total Bilirubin 0.5 mg/dL (0.2-1.0) Aspartate Amino Transferase (AST) 23 U/L (13-40) Alanine Aminotransferase (ALT) 12 U/L (7-40) Alkaline Phosphatase 44 U/L (46-116) Total Protein 7.3 g/dL (5.7-8.2) Albumin 4.2 g/dL (3.2-4.8) Triglycerides Level 84 mg/dL (< 150) Cholesterol Level 190 mg/dL (< 200) LDL Cholesterol 145 mg/dL (< 100) HDL Cholesterol 43 mg/dL (40-59) Free Thyroxine (T4) Calculated 0.81 ng/dL (0.89-1.76) Free Triiodothyronine (T3) pg/mL 3.28 pg/mL (2.3-4.2) Direct Bilirubin < 0.1 mg/dL (<0.3) Lipase 46 U/L (12-53) Thyroid Stimulating Hormone (TSH) 6.60 uIU/mL (0.55-4.78) Beta HCG, Quantitative 0.5 mIU/mL (1.5-4.2) Urine Color Light-yellow (Yellow) Urine Clarity Clear (Clear) Urine pH 6.5 (5.0-9.0) Urine Specific [place] 1.020 (1.001-1.035) Urine Protein Negative (Negative) Urine Ketones Negative (Negative) Urine Blood Trace /uL (Negative) Urine Nitrite Negative (Negative) Urine Bilirubin Negative (Negative) Urine Urobilinogen Normal mg/dL (Negative) Urine Leukocyte Esterase Negative /uL (Negative) Urine RBC 1 /hpf (0 - 4) Urine WBC <1 /hpf (0 - 5) Urine Squamous Epithelial Cells Few /hpf (<5) Urine Bacteria Few /hpf (None Seen) Urine Glucose Normal mg/dL (Normal) Other Laboratory Tests 11/17/24 07:12 Brief Hx & Hospital Course: HPI Patient is a 49-year-old female with a past medical history as described below came to the ED with a chief complaint of epigastric abdominal pain since the past 3 days. Patient reports about 3 days ago she started with pain in the epigastric area which was described as dull, constant with intermittent worsening on eating food and the pain went up into the chest with a pressure- like sensation and also reflux, ulcer radiating into the right upper quadrant, had associated nausea and 2 episodes of vomiting and few episodes of loose watery stools. Patient reports that she has loose stools all the time but no associated melena, hematochezia but sometimes has mucus in the stool. Patient has a history of diagnosed with H pylori twice in the past for which she took triple regimen medication. Past medical history: Sjogren disease, Dada's, breast cancer status post lumpectomy and chemo/radiotherapy(in remission), GERD, polymenorrhagia Past surgical history: Cholecystectomy and tubal ligation Social history: Denies smoking, drinks occasionally and denies any other drug use Brief hospital course Patient was admitted to the hospital and worked up further for suspected peptic ulcer disease. Given the history of H pylori patient was started on quadruple therapy with amoxicillin, metronidazole, pantoprazole and bismuth. CT abdomen pelvis without contrast did not show any significant finding. GI were consulted who recommended the patient to get an EGD but the patient did not agree and said she would follow up outpatient for any further procedure. As per the pathology results from the previous EGD, H pylori was eradicated. Patient tolerated full liquid diet well. No nausea, vomiting, abdominal pain was reported. Patient did not report of melena or hematochezia. H&H were stable. Patient with a history of Dada's thyroiditis had elevated TSH and low T4, was advised to continue on the levothyroxine 100 mcg daily which she was not compliant with before coming to the hospital. Discharge plan Patient was discharged to home in stable condition Medication: Protonix 40 mg b.i.d., Carafate 1 g daily, continue on home medication levothyroxine 100 mcg daily Diet: Avoid alcohol, spicy, caffeinated drinks, acidic diet. Avoid NSAIDs Follow up: Patient was advised to follow up with GI as outpatient with Dr. Min for further workup Consults/Reason for consult GI consultation for suspected peptic ulcer disease Operations or Procedures CT abdomen pelvis without contrast FINDINGS: LUNG BASES: Unremarkable. No mass. No consolidation. ABDOMEN: LIVER: 1.3 cm says of the left hepatic lobe. GALLBLADDER AND BILE DUCTS: Gallbladder is surgically absent. No ductal dilation. PANCREAS: Unremarkable. No ductal dilation. SPLEEN: Unremarkable. No splenomegaly. ADRENALS: Unremarkable. No mass. KIDNEYS AND URETERS: Unremarkable. No stones within either kidney. No hydronephrosis. STOMACH AND BOWEL: Colonic diverticulosis without acute diverticulitis. No obstruction. PELVIS: APPENDIX: Appendicolith without surrounding fast straining to suggest acute inflammation. BLADDER: Unremarkable. No stones. REPRODUCTIVE: Unremarkable as visualized. ABDOMEN and PELVIS: INTRAPERITONEAL SPACE: Unremarkable. No free air. No significant fluid collection. BONES/JOINTS: No acute fracture. No dislocation. SOFT TISSUES: Umbilical hernia containing fat. VASCULATURE: Unremarkable. No abdominal aortic aneurysm. LYMPH NODES: Unremarkable. No enlarged lymph nodes. IMPRESSION: 1. Umbilical hernia containing fat. 2. No obstructive uropathy. 3. Colonic diverticulosis without acute diverticulitis. Condition at Discharge: Good Final Diagnosis/Problems List Acute abdominal pain likely due to gastritis Dyspepsia ?Acute gastritis d/t ?h.pylori ?Peptic ulcer disease H/O H pylori infection Hypothyroidism H/O Dada's disease H/O Sjogren disease Umbilical hernia Polymonorrhagia Discharge Disposition: Home Discharge Instruct/Medications Diet: Regular, See Comment Diet comment: Avoid caffiene drinks, NSAIDs, spicy foods Activity: No Restrictions, As Tolerated Follow Up/Referral: Follow up in the D/C clinic in one week Follow up in the outpatient GI clinic in 2-4 weeks Medications: as per EMR Discharge Statement: "Patient was advised to return to the ER or call 911 if any headaches, dizziness, shortness of breath, chest pain, abdominal pain, bleeding, fevers, or worsening of medical condition. Patient was counseled about treatment plan, medications, possible side effects, patientverbalized understanding. All questions were answered to the best of my ability. This discharge took greater then 30 minutes in planning, reviewing documentation, counseling the patient, and discussing with other team members." ASSESSMENT ASSESSMENT Assessment Acute abdominal pain likely due to gastritis Dyspepsia ?Acute gastritis d/t ?h.pylori ?Peptic ulcer disease H/O H pylori infection Hypothyroidism H/O Dada's disease H/O Sjogren disease Umbilical hernia Polymonorrhagia Date of Service: Nov 17, 2024 Billing Provider: DEVYN LAY MD Common Visit Codes: 75641-ZVA/[id number] DISCH DAY >30min KINA LEMUS RESIDENT Nov 17, 2024 20:20 DEVYN LAY MD Nov 18, 2024 15:29
--- NOTE | 2024-11-18 12:54 | ECG ---
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
--- NOTE | 2024-11-19 15:25 | ECG ---
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
== END 2024-11-17 14:10 | disposition home or self-care (01) | DRG 241 ==
LOC: ER 14:57 → OVERFLOW 23:01 → TELE-E-ADS 11-16 18:00
PROVIDERS: ADMIT Student in an Organized Health Care Education/Training Program; ATTEND Student in an Organized Health Care Education/Training Program
DX: K29.00 Acute gastritis without bleeding (principal); B96.81 Helicobacter pylori [H. pylori] as the cause of diseases classified elsewhere; K27.9 Peptic ulcer, site unspecified, unspecified as acute or chronic, without hemorrhage or perforation; K21.9 Gastro-esophageal reflux disease without esophagitis; K42.9 Umbilical hernia without obstruction or gangrene; K57.30 Diverticulosis of large intestine without perforation or abscess without bleeding; N18.9 Chronic kidney disease, unspecified; N92.0 Excessive and frequent menstruation with regular cycle; Z79.899 Other long term (current) drug therapy; Z90.49 Acquired absence of other specified parts of digestive tract
CPT/HCPCS: 36415; 74176; 80048; 80053; 80061; 80076; 81001; 83690; 84439; 84443; 84481; 84702; 85025; 93005; G0378; J2405; J2470